=== PATIENT | female | born 1995 | race Asian ===

== ENCOUNTER 2024-09-11 18:17 | Emergency (ER) | payer SELFPAY ==
[~2024-09-11] VITALS: Ht 170.2 cm; Wt 64.0 kg
[2024-09-11 18:21] VITALS: O2SAT 96
[2024-09-11 20:20] VITALS: BP 129/74; PULSE 88; RESP 16; TEMP 36.50292; O2SAT 98
[2024-09-11] MEDS ORDERED: IBUP-2029 MT (20:54)
== END 2024-09-11 21:00 | disposition home or self-care (01) ==
LOC: ER 18:17
DX: S09.90XA Unspecified injury of head, initial encounter (principal); R11.0 Nausea; Y08.89XA Assault by other specified means, initial encounter; Y93.89 Activity, other specified; Y92.89 Other specified places as the place of occurrence of the external cause; Y99.8 Other external cause status
CPT/HCPCS: 99284